=== PATIENT | female | born 1945 ===

== ENCOUNTER 2023-01-21 01:45 | Outpatient (CLI) | payer MEDICARE | END 2023-01-21 01:46 | disposition critical access hospital (66) | LOC: EMS 01:45 | DX: R11.2 Nausea with vomiting, unspecified (principal); R19.7 Diarrhea, unspecified; R53.1 Weakness; R42 Dizziness and giddiness; K59.00 Constipation, unspecified | CPT/HCPCS: A0425; A0427 ==

== ENCOUNTER 2023-01-21 02:08 | Emergency (ER) | payer MEDICARE, OTHER ==
[2023-01-21] MEDS ORDERED: SODIUM CHLORIDE 0.9% 1,000 ML IV STA (02:38)
--- NOTE | 2023-01-21 02:50 | ED Physician Documentation ---
PD HPI NVD - Stated complaint Stated Complaint: NAUSEA/VOMITING - Chief complaint Chief Complaint: Abd Pain - History obtained from History obtained from: Patient - Additonal information Additional information: Patient is a 77-year-old female presenting for evaluation of nausea and vomiting. Patient states that since yesterday morning her stomach has felt upset and unsettled.This evening as she reported feeling the need to go to the bathroom and had several episodes of emesis. She states it was mostly clear liquids.She reported feeling lightheaded. She denies falling or hitting her head. She denies chest pain or shortness of breath. No diarrhea.She reports actually feeling constipated and did take MiraLAX yesterday.She denies any sick contacts with similar symptoms. No recent travel or antibiotic use.She received 4 mg of IV Zofran from EMS reports feeling better.She has had a prior hysterectomy. Review of Systems Constitutional: denies: Fever Cardiac: denies: Chest pain / pressure Respiratory: denies: Dyspnea GI: reports: Nausea, Vomiting. denies: Abdominal Pain, Diarrhea : denies: Dysuria Musculoskeletal: denies: Back pain Neurologic: denies: Syncope PD PAST MEDICAL HISTORY - Present Medications Home Medications: Ambulatory Orders Medication Instructions Recorded Confirmed Ondansetron Odt [Zofran] 4 mg TL Q6H PRN #10 tablet 01/21/23 - Allergies Allergies/Adverse Reactions: Allergies Allergy/AdvReac Type Severity Reaction Status Date / Time No Known Drug Allergies Allergy Verified 01/21/23 02:32 PD ED PE NORMAL - General General: Alert and oriented X 3, No acute distress, Well developed/nourished - HEENT HEENT: Atraumatic - Neck Neck: Supple, no meningeal sign - Cardiac Cardiac: RRR, No murmur - Respiratory Respiratory: No respiratory distress, Clear bilaterally - Abdomen Abdomen: Normal bowel sounds, Soft, Non tender, Non distended - Derm Derm: Warm and dry - Neuro Neuro: Alert and oriented X 3, property custodian 2-12 intact, No motor deficit, Normal speech Results - Vitals Vitals: Vital Signs - 24 hr 01/21/23 01/21/23 01/21/23 02:23 04:00 05:11 Temperature 35.6 C L Heart Rate 80 87 87 Respiratory 17 17 18 Rate Blood Pressure 139/63 H 150/68 H 145/62 H O2 Saturation 97 98 99 Oxygen O2 Source Room air - EKG (time done) 0251 EKG releavant findings:: EKG personally interpreted by author of this note. Relevant findings are: Rate 84, normal sinus rhythm, no STEMI, no ST depressions Rate: Rate (enter#) (84) Rhythm: NSR Intervals: No: Prolonged QT Ischemia: No: ST elevation c/w ischemia - Labs Labs: Laboratory Tests 01/21/23 01/21/23 02:49 02:49 WBC 5.3 RBC 4.45 Hgb 14.2 Hct 42.4 MCV 95.3 MCH 31.9 H MCHC 33.5 RDW 11.9 L Plt Count 209 MPV 9.5 Neut # (Auto) 3.6 Lymph # (Auto) 1.2 L [place] # (Auto) 0.4 Eos # (Auto) 0.1 Baso # (Auto) 0.0 Absolute Nucleated RBC 0.00 Nucleated RBC % 0.0 Sodium 139 Potassium 3.0 L Chloride 98 L Carbon Dioxide 23 Anion Gap 18.0 H BUN 17 Creatinine 0.7 Estimated GFR (MDRD) 81 L Glucose 156 H Calcium 9.2 Total Bilirubin 1.2 H AST 17 ALT 16 Alkaline Phosphatase 36 L Total Protein 6.5 L Albumin 3.8 Globulin 2.7 Albumin/Globulin Ratio 1.4 Lipase 35 PD Medical Decision Making - ED course Complexity details: reviewed results, re-evaluated patient, d/w patient ED course: Patient presenting for evaluation of feeling lightheaded, nausea and vomiting for the last day. Vital signs appear stable. Abdominal exam is benign. CBC, chemistries were obtained and reviewed. Chemistry does demonstrate hypokalemia and signs of dehydration. Patient is feeling better after IV fluids and Zofran. She is tolerating p.o. including oral potassium replacement. An EKG was obtained given her age without signs of acute ischemia. No chest pain or other symptoms to suggest ACS. Repeat abdominal exam remained benign.And she denies any abdominal discomfort. She is feeling better here so we discussed continued supportive care as well as concerning symptoms to return for. 0352 - Repeat abdominal exam is benign. Patient reports still feeling a little bit of queasiness so we will give another dose of Zofran. Departure - Departure Disposition: 01 Home, Self Care Clinical Impression: Nausea & vomiting, Hypokalemia Instructions: ED Potassium Deficiency, ED Nausea Vomiting Prescriptions: Ondansetron Odt [Zofran] 4 mg TL Q6H PRN #10 tablet PRN Reason: Nausea / Vomiting Comments: Your labs today show signs of dehydration and a low potassium which we gave you an oral replacement for.I am sending prescription for antinausea medications to the [facility] in [place]. It is important today to try and stay hydrated with small amounts of fluids.If at anytime you develop any worsening symptoms such as abdominal pain, weakness, continued vomiting or have any new concerns please return to the emergency department.
[2023-01-21 02:56] LABS: BASOPHILS % (AUTO) 0.2 %; EOSINOPHILS # (AUTO) 0.1 10^3/uL (0.0-0.7); EOSINOPHILS % (AUTO) 1.1 %; HCT - HEMATOCRIT 42.4 % (37.0-47.0); HGB - HEMOGLOBIN 14.2 g/dL (12.0-16.0); LYMPHOCYTES # (AUTO) 1.2 10^3/uL (1.5-3.5); LYMPHOCYTES % (AUTO) 22.4 %; MEAN CORPUSCULAR HEMOGLOBIN 31.9 pg (27.0-31.0); MEAN CORPUSCULAR HGB CONC 33.5 g/dL (32.0-36.0); MEAN CORPUSCULAR VOLUME 95.3 fL (81.0-99.0); MEAN PLATELET VOLUME 9.5 fL (7.9-10.8); MONOCYTES # (AUTO) 0.4 10^3/uL (0.0-1.0); NEUTROPHILS # (AUTO) 3.6 10^3/uL (1.5-6.6); NEUTROPHILS % (AUTO) 68.1 %; PLT - PLATELET COUNT 209 10^3/uL (130-450); RED BLOOD COUNT 4.45 10^6/uL (4.20-5.40); RED CELL DISTRIBUTION WIDTH 11.9 % (12.0-15.0); WHITE BLOOD COUNT 5.3 x10^3/uL (4.8-10.8)
[2023-01-21 03:08] LABS: ALBUMIN 3.8 g/dL (3.2-5.5); ALBUMIN/GLOBULIN RATIO 1.4 (1.0-2.2); BILIRUBIN,TOTAL 1.2 mg/dL (0.2-1.0); CALCIUM 9.2 mg/dL (8.5-10.3); CREATININE 0.7 mg/dL (0.4-1.0); TOTAL PROTEIN 6.5 g/dL (6.7-8.2)
[2023-01-21] MEDS ORDERED: ONDANSETRON 4 MG/2 ML VIAL IVP STA (03:51)
[2023-01-21] MEDS ORDERED: POTASSIUM BICARB 25 MEQ TABLET PO STA (03:51)
[2023-01-21] MEDS ORDERED: ONDANSETRON ODT 4 MG Prepack 2 TL PRN (04:55)
[2023-01-21 05:13] VITALS: BP 145/62
== END 2023-01-21 05:11 | disposition home or self-care (01) ==
LOC: EDUNIT# → ED 02:08
DX: R11.2 Nausea with vomiting, unspecified (principal); E87.6 Hypokalemia
CPT/HCPCS: 36415; 80053; 83690; 85025; 93005; 96374; 99284; A9270